=== PATIENT | male | born 1995 | race African-American/Black ===

== ENCOUNTER 2018-05-14 01:52 | Emergency (ER) | payer MEDICAID ==
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
== END 2018-05-14 02:25 | disposition home or self-care (01) ==
LOC: ER 01:52
DX: S40.012A Contusion of left shoulder, initial encounter (principal); F17.200 Nicotine dependence, unspecified, uncomplicated; W18.39XA Other fall on same level, initial encounter; Y93.89 Activity, other specified; Y92.89 Other specified places as the place of occurrence of the external cause; Y99.8 Other external cause status
CPT/HCPCS: Z7502